=== PATIENT | female | born 1975 | race Hispanic/Latino ===

== ENCOUNTER 2023-12-11 11:30 | Emergency (ER) | payer SELFPAY ==
--- NOTE | 2023-12-11 13:51 | ED.GENMED ---
History of Present Illness
General
Chief Complaint: Extremity Pain (non-traumatic)
Source: patient and spouse
Exam Limitations: none
Time Seen by Provider: 12/11/23 11:47
Nursing documentation reviewed up to this point in time: agreed with
Travel History
Have you had any contact with someone who has COVID-19?: No
Do you have any symptoms of coronavirus? Fever > 100 degrees, chills, cough, shortness of breath, sore throat, loss of taste or smell, muscle aches, or headache?: No
History of Present Illness
History of Present Illness:
48-year-old female with past medical history of high blood pressure presenting to the emergency department after trip and fall at work hitting her knees bilaterally. Has had difficulty walking today. Had some swelling yesterday as well. Claims
that she also hit her arm but denies significant discomfort to the area. [employer] used for all interactions with
Review of Systems
Review of Systems
Allergies reviewed?: Yes
All Other Systems: ROS reviewed and negative except as documented in HPI and ROS
Phy Exam
Physical Exam
Physical Exam:
GENERAL: Alert , in no apparent distress
EYE: pupils equal and reactive
NECK: Supple, no significant adenopathy.
ENT: o/p clr, mmm.
CARDIAC: Regular rate and rhythm .
LUNGS: Clear breath sounds bilaterally, no acute respiratory distress, no wheezes/rales/rhonchi
ABDOMEN: Soft, without focal tenderness, no r/g, no cvat
NEUROLOGICAL: Alert and oriented, no focal neuro deficits 5 out of 5 upper and lower extremity strength normal sensation when palpating bilaterally.
SKIN: Warm and dry, skin intact.
MUSCULOSKELETAL: Discomfort to palpation throughout the knees bilaterally without obvious swelling good range of motion. No edema, well perfused.
PSYCH: Normal and appropriate interaction.
Course
Orders/Labs/Results
Orders:
Orders
12/11/23 11:42
Knee, Left 4 or More Views [CR Knee - Left 4 Or More View*] Urgent
Comment:
Reason For Exam: pain after a fall
Knee, Right 4 or More Views [CR Knee- Right 4 Or More View*] Urgent
Comment:
Reason For Exam: pain after a fall
12/11/23 13:28
Niles Wrap Left-Treatment ONCE
Niles Wrap Right-Treatment ONCE
MDM/Problems Addressed
MDM/Problems Addressed:
48-year-old female presenting to the emergency department today with concerns of bilateral knee pain after ground-level fall while at work landing mainly on her knees bilaterally. Also hit her right arm. Denies hitting her head denies losing
consciousness no x-rays performed of the knees without signs of fracture. Knees were wrapped with Niles bandages and able to ambulate with symptoms. Otherwise stable for discharge return precautions given.
*Critical Care Note
Total Time (30-74mins, 75-104mins- exclusive of procedures): Not Applicable
ED Attending Note
-
Portions of this chart may have been created with voice recognition software.� Occasional wrong word or��sound alike� substitutions may have occurred due to the inherent limitations of voice recognition software.
Discharge Plan
Departure
Patient Disposition: Home (Routine Discharge)
Date of Disposition: 12/11/23
Time of Disposition: 13:53
Patient with high blood pressure during this ER visit?: No
Condition: Good
Covid-19: Not Applicable
Discharge Problem:
Sprain of knee
Instructions: Muscle and Bone Pain (DC)
Referrals:
NONE,* [Family Provider] -
Stand Alone Forms: Return to Work
Activity Restrictions/Additional Instructions:
You came to the emergency department today with concerns of knee discomfort. Here you had x-rays without signs of fracture. These likely are sprains. Please rest ice compress and elevate and follow close with the primary care doctor within 1 week
for persisting symptoms. Return to the emergency department any worsening, new or concerning symptoms.
Interventions
Interventions:
*Risk Screen - Suicide Last Done: 12/11/23 13:23
*Neglect/Abuse Screening Last Done: 12/11/23 13:23
Discharge Date and Time
Print Language: FRENCH
== END 2023-12-11 14:15 | disposition home or self-care (01) ==
LOC: EMR 11:30
PROVIDERS: EMERGENCY PHYSICIAN Emergency Medicine
DX: S83.92XA Sprain of unspecified site of left knee, initial encounter (principal); S83.91XA Sprain of unspecified site of right knee, initial encounter; W18.30XA Fall on same level, unspecified, initial encounter; Y99.0 Civilian activity done for income or pay
CPT/HCPCS: 99283; 73564

== ENCOUNTER 2023-12-13 16:20 | Emergency (ER) | payer SELFPAY ==
[2023-12-13 16:23] VITALS: BP 136/86
--- NOTE | 2023-12-13 18:12 | ED.GENMED ---
History of Present Illness
General
Chief Complaint: Extremity Pain (non-traumatic)
Source: patient
Exam Limitations: none
Time Seen by Provider: 12/13/23 17:27
Nursing documentation reviewed up to this point in time: agreed with
Travel History
Have you had any contact with someone who has COVID-19?: No
Do you have any symptoms of coronavirus? Fever > 100 degrees, chills, cough, shortness of breath, sore throat, loss of taste or smell, muscle aches, or headache?: No
History of Present Illness
History of Present Illness:
Patient is a 48-year-old female who presents to the ER with family at bedside. Patient Nauruan-speaking language line used and assistance. Patient reports that she fell onto both knees December 09. She was seen here in the ER December 10 that x-rays
which were negative but continues to have knee pain.
She has not been taking ibuprofen as directed she reports only once a day. She has been using Niles bandages. She is able to walk but complains of soreness and because of this is having a hard time working. She works in a warehouse.
Review of Systems
Review of Systems
Allergies reviewed?: Yes
All Other Systems: ROS reviewed and negative except as documented in HPI and ROS
Constitutional: Reports no symptoms
Musculoskeletal: Reports other ( b/l knee pain)
Skin: Reports no symptoms
Neurological: Reports no symptoms
Psychiatric: Reports no symptoms
Phy Exam
General Physical Exam
General Presentation: no apparent distress
General age: appears stated age
General Skin: warm and dry
General Habitus: normal
General Mental: alert
General Hydration: appears well hydrated
Neurological Exam
Neurological Exam: alert and oriented x3
Musculoskeletal Exam
Musculoskeletal Exam: full ROM and other ( b/l knees with normal inspection mild discomfort with full flexion/extension no erythema no swelling able to bear weight )
Skin Exam
Skin Exam: normal color and warm/dry
Psychiatric Exam
Psychiatric Exam: normal mood/affect
Course
Vital Signs
Initial and Last Documented VS:
Initial Vital Signs
Temp Pulse Resp BP Pulse Ox
98 F 66 16 136/86 98
12/13/23 16:23 12/13/23 16:23 12/13/23 16:23 12/13/23 16:23 12/13/23 16:23
Last Documented Vital Signs
Temp Pulse Resp BP Pulse Ox
98 F 66 16 136/86 98
12/13/23 16:23 12/13/23 16:23 12/13/23 16:23 12/13/23 16:23 12/13/23 16:23
MDM/Problems Addressed
Differential Diagnosis Includes:
Not limited to contusion sprain strain
MDM/Problems Addressed:
Patient was seen here after falling on her knees. She had x-rays which were negative. Symptoms are consistent with contusion/sprain. Patient still has discomfort she has not been taking ibuprofen as recommended. She is weightbearing
close no obvious swelling. Symptoms are consistent with contusion possible sprain. Will DC with ibuprofen every 8 hours for the next several days discussed close outpatient Ortho follow-up for continued symptoms
*Critical Care Note
Total Time (30-74mins, 75-104mins- exclusive of procedures): Not Applicable
Data Reviewed
Review of Other/Old Records Reveals: Other (Previous ED visit 2 days ago)
ED Attending Note
-
Portions of this chart may have been created with voice recognition software.� Occasional wrong word or��sound alike� substitutions may have occurred due to the inherent limitations of voice recognition software.
Discharge Plan
Departure
Patient Disposition: Home (Routine Discharge)
Date of Disposition: 12/13/23
Time of Disposition: 18:17
Patient with high blood pressure during this ER visit?: Yes
Condition: Fair
Covid-19: Not Applicable
Discharge Problem:
Knee pain
Instructions: Muscle and Bone Pain (DC), BLOOD PRESSURE
Referrals:
Oscar Thakur MD [Active] -
Torrie Miller NP [Family Provider] -
Activity Restrictions/Additional Instructions:
As discussed ibuprofen 400 mg every 8 hours with food for the next 3 days for pain. Keep legs elevated as much as possible. Follow-up with [facility]/orthopedics in the next several days for reevaluation.
Remove Niles wraps.
Return if any worsening of symptoms.
Interventions
Interventions:
*Risk Screen - Suicide Last Done: 12/13/23 16:23
*General Assessment Last Done: 12/13/23 18:29
*Neglect/Abuse Screening Last Done: 12/13/23 16:23
ED- Fall Risk Assessment Last Done: 12/13/23 16:23
*ED COVID-19 Vaccine History Last Done: 12/13/23 16:23
*Nursing Disposition Last Done: 12/13/23 18:30
ED-Skin Assessment Last Done: 12/13/23 18:29
ED-Musculoskeletal Assessment Last Done: 12/13/23 18:29
Discharge Date and Time
Discharge Date/Time: 12/13/23 18:30
== END 2023-12-13 18:30 | disposition home or self-care (01) ==
LOC: EMR 16:20
PROVIDERS: EMERGENCY PHYSICIAN Emergency Medicine; FAMILY PHYSICIAN Nurse Practitioner Adult Health
DX: M25.562 Pain in left knee (principal); M25.561 Pain in right knee; S80.02XA Contusion of left knee, initial encounter; S80.01XA Contusion of right knee, initial encounter; W19.XXXA Unspecified fall, initial encounter; R03.0 Elevated blood-pressure reading, without diagnosis of hypertension
CPT/HCPCS: 99282

== ENCOUNTER → 2024-01-01 12:36 | Outpatient (REF) | payer OTHER, SELFPAY | LOC: RAD 12:36 | PROVIDERS: ATTENDING PHYSICIAN Nurse Practitioner Adult Health | DX: M79.674 Pain in right toe(s) (principal) | CPT/HCPCS: 73630 ==

== ENCOUNTER → 2024-08-06 12:51 | Outpatient (REF) | payer OTHER, SELFPAY ==
[2024-08-06 14:15] LABS: ALT (SGPT) 15 U/L (0-35); AST (SGOT) 22 U/L (14-36); Albumin 4.4 g/dl (3.5-5.0); Alkaline Phosphatase 114 U/L (38-126); Blood Urea Nitrogen 12 mg/dl (7-17); Calcium 9.5 mg/dl (8.4-10.2); Carbon Dioxide 24 mmol/L (22-30); Chloride 106 mmol/L (98-107); Glucose 89 mg/dl (70-99); Potassium 4.4 mmol/L (3.5-5.1); Sodium 142 mmol/L (135-145); Total Bilirubin 0.6 mg/dl (0.2-1.3); Total Protein 7.6 g/dl (6.3-8.2); eGFR > 60.00
== END ==
LOC: CLINIC 12:51
PROVIDERS: ATTENDING PHYSICIAN Nurse Practitioner Adult Health
DX: I10 Essential (primary) hypertension (principal)
CPT/HCPCS: 36415; 80053; 82088; 84244